=== PATIENT | female | born 1940 | race Caucasian/White ===

== ENCOUNTER 2019-07-24 | Emergency (ER) | payer MEDICARE ==
[~2019-07-24] MED LIST: ANTARA130 MG OR; BYETTA5 SC; CRESTOR10 MG OR; FOLIC ACI1 OR; GLUCOSAMINE1 TA1 OR; HYDROCHLOROT25 MG PO; MULTIVITAMIN OR; TENORMIN OR; TYLENOL 8 HR650 MG OR
[2019-07-24 12:38] LABS: HEMATOCRIT 39.2 % (37.0-47.0); HEMOGLOBIN 12.5 g/dl (12.0-16.0); IMMATURE GRANULOCYTES 1.1 % (0.0-5.0); MEAN CORPUSCULAR HGB 29.3 pG CALC (26.0-32.0); MEAN CORPUSCULAR HGB CONC 31.9 g/L CALC (32.0-36.0); NEUT# 3.63 thou/uL (2.00-7.15); RED BLOOD COUNT 4.26 mill/uL (4.20-5.60)
[2019-07-24 12:48] LABS: ALBUMIN 4.2 g/dL (3.2-5.0); ALKALINE PHOSPHATASE 47 u/l (38-126); ANION GAP 14 (6-22 (CALC)); BILIRUBIN, TOTAL 0.5 mg/dL (0.0-1.4); BUN 17 mg/dL (8-23); BUN/CREATININE RATIO 18 (12-20 (CALC)); CARBON DIOXIDE 25 mmol/l (22-30); CHLORIDE 100 mmol/l (95-108); GFR 53 ML/MIN (>=60 (CALC)); GFR FOR AFR.AMER. > 60 ML/MIN (>=60 (CALC)); POTASSIUM 4.9 mmol/l (3.5-5.1); SGOT/AST 45 u/l (9-36); SODIUM 134 mmol/l (137-146); TOTAL PROTEIN 6.8 g/dL (6.3-8.2)
[2019-07-24] MEDS ORDERED: TAM75CAP PO (12:59)
== END 2019-07-24 13:09 | disposition home or self-care (01) ==
PROVIDERS: Emergency Medicine
DX: J11.1 Influenza due to unidentified influenza virus with other respiratory manifestations (principal); I10 Essential (primary) hypertension; E11.9 Type 2 diabetes mellitus without complications; D68.0 Von Willebrand disease

== ENCOUNTER 2024-07-06 14:42 | Emergency (ER) | payer MEDICARE ==
[~2024-07-06] VITALS: Ht 160 cm; Wt 75.5 kg
[~2024-07-06 14:42] MED LIST changes: +TAM75CAP PO; +TRAMADOL HYDROC50 M1 PO
[2024-07-06 14:56] VITALS: BP 130/67
[2024-07-06 15:00] VITALS: BP 136/66
[2024-07-06] MEDS ORDERED: Diph, Acellular Pertussis, Tet 0.5 ML/VIAL (Tdap) SDV IM ONE (15:05)
[2024-07-06 15:31] VITALS: BP 109/57
[2024-07-06 15:45] VITALS: BP 108/65
[2024-07-06 16:00] VITALS: BP 104/64
[2024-07-06 16:05] VITALS: BP 104/64
== END 2024-07-06 16:02 | disposition home or self-care (01) ==
LOC: ED 14:42
DX: S00.211A Abrasion of right eyelid and periocular area, initial encounter (principal); S50.01XA Contusion of right elbow, initial encounter; I10 Essential (primary) hypertension; E11.9 Type 2 diabetes mellitus without complications; E78.00 Pure hypercholesterolemia, unspecified; D68.00 Von Willebrand disease, unspecified; W01.0XXA Fall on same level from slipping, tripping and stumbling without subsequent striking against object, initial encounter; Y92.481 Parking lot as the place of occurrence of the external cause
CPT/HCPCS: 90715